=== PATIENT | male | born 1995 | race Hispanic/Latino ===

== ENCOUNTER 2024-03-14 04:07 | Emergency (ER) | payer OTHER ==
[~2024-03-14] VITALS: Ht 167.6 cm; Wt 79.4 kg
[2024-03-14] MEDS: DIPH,PERTUSS(ACELL),TET VAC/PF 0.5 ML VIAL IM ONE (04:27)
[2024-03-14] MEDS ORDERED: CEPH500B PO (05:51)
[2024-03-14 06:13] VITALS: BP 120/68; PULSE 76; RESP 18; O2SAT 99
== END 2024-03-14 06:21 | disposition home or self-care (01) ==
LOC: EDH 04:07
DX: S01.01XA Laceration without foreign body of scalp, initial encounter (principal); X58.XXXA Exposure to other specified factors, initial encounter; Y93.89 Activity, other specified; Y92.89 Other specified places as the place of occurrence of the external cause; Y99.8 Other external cause status
CPT/HCPCS: 12002; 70450; 90471; 90715

== ENCOUNTER 2024-04-21 14:31 | Emergency (ER) | payer OTHER ==
[~2024-04-21] VITALS: Ht 167.6 cm; Wt 74.8 kg
[~2024-04-21 14:31] MED LIST: CEPH500B PO; PHARMACY COMMUNICATION MISC SCH
[2024-04-21] MEDS ORDERED: KETO10TA2 PO (18:09)
[2024-04-21] MEDS: KETOROLAC 30MG VIAL (30MG/ML) IM ONE (18:33)
[2024-04-21 18:52] VITALS: BP 102/48; PULSE 70; RESP 16; O2SAT 99
== END 2024-04-21 18:54 | disposition home or self-care (01) ==
LOC: EEVIPCON 14:31 → EDH 14:31
DX: S02.2XXA Fracture of nasal bones, initial encounter for closed fracture (principal); S02.402A Zygomatic fracture, unspecified side, initial encounter for closed fracture; S00.83XA Contusion of other part of head, initial encounter; F41.9 Anxiety disorder, unspecified; Z79.899 Other long term (current) drug therapy; Y04.0XXA Assault by unarmed brawl or fight, initial encounter; Y93.89 Activity, other specified; Y92.148 Other place in prison as the place of occurrence of the external cause; Y99.8 Other external cause status
CPT/HCPCS: 99285; 70450; 73030; 72125; 71250; 70486; 74176; 96372; J1885